=== PATIENT | female | born 1950 | race Caucasian/White ===

== ENCOUNTER 2016-03-24 08:00 | Outpatient (CLI) | payer MEDICARE, OTHER | END 2016-03-24 23:59 | DX: J44.1 Chronic obstructive pulmonary disease with (acute) exacerbation (principal); R05 Cough; J98.09 Other diseases of bronchus, not elsewhere classified ==

== ENCOUNTER 2016-05-30 07:56 | Outpatient (CLI) | payer MEDICARE, OTHER | END 2016-05-30 07:57 | disposition home or self-care (01) | DX: E78.2 Mixed hyperlipidemia (principal); Z79.899 Other long term (current) drug therapy; M19.90 Unspecified osteoarthritis, unspecified site; E55.9 Vitamin D deficiency, unspecified; G35 Multiple sclerosis ==

== ENCOUNTER 2016-07-02 09:25 | Outpatient (CLI) | payer MEDICARE, OTHER | END 2016-07-02 09:26 | disposition home or self-care (01) | DX: Z12.31 Encounter for screening mammogram for malignant neoplasm of breast (principal); Z80.3 Family history of malignant neoplasm of breast ==

== ENCOUNTER 2016-07-02 09:27 | Outpatient (CLI) | payer MEDICARE, OTHER | END 2016-07-02 09:28 | disposition home or self-care (01) | DX: Z13.820 Encounter for screening for osteoporosis (principal); Z78.0 Asymptomatic menopausal state ==

== ENCOUNTER 2016-08-09 13:34 | Outpatient (CLI) | payer MEDICARE, OTHER ==
[2016-08-09 13:50] LABS: BASOPHILS # (AUTO) 0.1 10^3/uL (0.0-0.1); BASOPHILS % (AUTO) 1.3 %; EOSINOPHILS # (AUTO) 0.2 10^3/uL (0.0-0.7); HCT - HEMATOCRIT 44.4 % (37.0-47.0); HGB - HEMOGLOBIN 15.4 g/dL (12.0-16.0); LYMPHOCYTES # (AUTO) 2.3 10^3/uL (1.5-3.5); LYMPHOCYTES % (AUTO) 29.1 %; MEAN CORPUSCULAR HEMOGLOBIN 30.5 pg (27.0-31.0); MEAN CORPUSCULAR HGB CONC 34.8 g/dL (32.0-36.0); MEAN CORPUSCULAR VOLUME 87.8 fL (81.0-99.0); MEAN PLATELET VOLUME 8.4 fL (7.9-10.8); MONOCYTES # (AUTO) 0.7 10^3/uL (0.0-1.0); MONOCYTES % (AUTO) 8.6 %; NEUTROPHILS # (AUTO) 4.6 10^3/uL (1.5-6.6); RED BLOOD COUNT 5.06 10^6/uL (4.20-5.40); RED CELL DISTRIBUTION WIDTH 14.3 % (12.0-15.0); UNCORRECTED WHITE BLOOD COUNT 7.9 x10^3/uL; WHITE BLOOD COUNT 7.9 x10^3/uL (4.8-10.8)
== END 2016-08-09 13:35 | disposition home or self-care (01) ==
LOC: LAB 13:34
PROVIDERS: ATTEND Physician Assistant Medical
DX: R74.8 Abnormal levels of other serum enzymes (principal)
CPT/HCPCS: 36415; 85025

== ENCOUNTER 2017-04-17 15:01 | Outpatient (CLI) | payer MEDICARE, OTHER ==
--- NOTE | 2017-04-18 12:47 | XRAY Report ---
THREE VIEW RIGHT KNEE: 04/17/2017 CLINICAL INDICATION: Pain. FINDINGS: AP, lateral, sunrise views of the right knee demonstrate a total knee replacement in place. There is no evidence of fracture or dislocation. No hardware complication is seen. IMPRESSION: RIGHT KNEE REPLACEMENT. NO EVIDENCE OF FRACTURE OR HARDWARE COMPLICATION. TD: 04/18/2017 12:46
--- NOTE | 2017-04-18 12:49 | XRAY Report ---
TWO VIEW CHEST: 04/17/2017 CLINICAL INDICATION: Emphysema, dyspnea. COMPARISON: 02/06/2016. FINDINGS: Frontal and lateral views of the chest demonstrate a normal cardiac silhouette. The lungs remain hyperinflated. Right pleural thickening is stable. No focal infiltrate, effusion, or pneumothorax is present. IMPRESSION: STABLE HYPERINFLATION. NO EVIDENCE OF ACUTE CARDIOPULMONARY DISEASE. TD: 04/18/2017 12:48
--- NOTE | 2017-04-18 17:55 | CT Report ---
CT SINUSES WITHOUT CONTRAST: 04/17/2017 CLINICAL INDICATION: Chronic sinusitis. TECHNIQUE: Axial CT images of the paranasal sinuses were obtained without intravenous contrast. Sagittal and coronal reconstructions were performed. In accordance with CT protocol optimization, one or more of the following dose reduction techniques were utilized for this exam: Automated exposure control, adjustment of mA and/or KV based on patient size, or use of iterative reconstructive technique. FINDINGS: There is patchy mucosal thickening in the ethmoid air cells, left greater than right. No air fluid levels are appreciated. The ostiomeatal units are patent. The nasal septum is midline. The visualized orbital contents are unremarkable. No osseous destruction is seen. IMPRESSION: MILD CHRONIC ETHMOID SINUS DISEASE. TD: 04/18/2017 17:54
== END 2017-04-17 15:02 | disposition home or self-care (01) ==
LOC: DI 15:01
PROVIDERS: ATTEND Physician Assistant Medical
DX: J32.2 Chronic ethmoidal sinusitis (principal); M25.561 Pain in right knee; Z96.651 Presence of right artificial knee joint; J43.9 Emphysema, unspecified
CPT/HCPCS: 70486; 71046

== ENCOUNTER 2017-05-29 10:17 | Outpatient (CLI) | payer MEDICARE, OTHER ==
[2017-05-29 10:56] LABS: BASOPHILS # (AUTO) 0.1 10^3/uL (0.0-0.1); BASOPHILS % (AUTO) 1.3 %; EOSINOPHILS # (AUTO) 0.2 10^3/uL (0.0-0.7); EOSINOPHILS % (AUTO) 2.4 %; HGB - HEMOGLOBIN 16.1 g/dL (12.0-16.0); LYMPHOCYTES # (AUTO) 2.4 10^3/uL (1.5-3.5); LYMPHOCYTES % (AUTO) 38.5 %; MEAN CORPUSCULAR HEMOGLOBIN 30.3 pg (27.0-31.0); MEAN CORPUSCULAR HGB CONC 34.3 g/dL (32.0-36.0); MEAN CORPUSCULAR VOLUME 88.2 fL (81.0-99.0); MEAN PLATELET VOLUME 8.3 fL (7.9-10.8); MONOCYTES # (AUTO) 0.6 10^3/uL (0.0-1.0); MONOCYTES % (AUTO) 8.8 %; NEUTROPHILS # (AUTO) 3.1 10^3/uL (1.5-6.6); PLT - PLATELET COUNT 219 10^3/uL (130-450); RED BLOOD COUNT 5.33 10^6/uL (4.20-5.40); RED CELL DISTRIBUTION WIDTH 14.4 % (12.0-15.0); WHITE BLOOD COUNT 6.3 x10^3/uL (4.8-10.8)
[2017-05-29 11:26] LABS: ALBUMIN 4.5 g/dL (3.2-5.5); ALBUMIN/GLOBULIN RATIO 1.5 (1.0-2.2); ALKALINE PHOSPHATASE 53 IU/L (42-121); ALT ALANINE AMINOTRANSFERASE 21 IU/L (10-60); AST ASPARTATE AMINOTRANSFERASE 20 IU/L (10-42); BILIRUBIN,TOTAL 0.9 mg/dL (0.2-1.0); BUN - BLOOD UREA NITROGEN 21 mg/dL (6-20); CALCIUM 8.9 mg/dL (8.5-10.3); CARBON DIOXIDE - CO2 23 mmol/L (21-32); CHLORIDE 103 mmol/L (101-111); CHOL/HDL RATIO 4.7 (<4.4); CHOLESTEROL 236 mg/dL; CREATININE 0.8 mg/dL (0.4-1.0); GFR - MDRD 72 (>89); GLUCOSE 96 mg/dL (70-100); HDL CHOLESTEROL 50 mg/dL; LDL CHOLESTEROL,CALCULATED 155 mg/dL; LDL/HDL RATIO 3.1 (<4.4); SODIUM 134 mmol/L (135-145); TOTAL PROTEIN 7.6 g/dL (6.7-8.2); VLDL CHOLESTEROL 31 mg/dL
== END 2017-05-29 10:18 | disposition home or self-care (01) ==
LOC: LAB 10:17
PROVIDERS: ATTEND Physician Assistant Medical
DX: Z79.899 Other long term (current) drug therapy (principal); E55.9 Vitamin D deficiency, unspecified; J43.9 Emphysema, unspecified; E78.2 Mixed hyperlipidemia; F32.9 Major depressive disorder, single episode, unspecified; M15.9 Polyosteoarthritis, unspecified
CPT/HCPCS: 36415; 80053; 80061; 82306; 83721; 84443; 85025

== ENCOUNTER 2017-07-08 15:29 | Outpatient (CLI) | payer MEDICARE, OTHER ==
--- NOTE | 2017-07-09 13:29 | Mammography Report ---
DIGITAL SCREENING MAMMOGRAM: 07/08/2017 CLINICAL INDICATION: A 67-year-old with family history of breast cancer for screening. COMPARISON: 06/2016, 05/2015, 05/2014, 05/2013. TECHNIQUE: Routine CC and MLO projections were obtained of the breasts. FINDINGS: Scattered fibroglandular tissue is present within the breasts. There are no dominant masses, suspicious microcalcifications, or secondary signs of malignancy. In comparison to the previous studies, there are no significant changes. IMPRESSION: NO MAMMOGRAPHIC EVIDENCE OF MALIGNANCY. NO SIGNIFICANT INTERVAL CHANGES. RECOMMENDATION: Screening mammography is recommended annually. BIRADS CATEGORY 1 - NEGATIVE. STANDARD QUALIFYING STATEMENTS: 1. This examination was reviewed with the aid of Computed-Aided Detection (CAD). 2. A negative or benign imaging report should not delay biopsy if clinically suspicious findings are present. Consider surgical consultation if warranted. More than 5% of cancers are not identified by imaging. 3. Dense breasts may obscure an underlying neoplasm. TD: 07/09/2017 13:19
== END 2017-07-08 15:30 | disposition home or self-care (01) ==
LOC: DI 15:29
PROVIDERS: ATTEND Physician Assistant Medical
DX: Z12.31 Encounter for screening mammogram for malignant neoplasm of breast (principal); Z80.3 Family history of malignant neoplasm of breast
CPT/HCPCS: 77067

== ENCOUNTER 2017-08-16 09:26 | Outpatient (CLI) | payer MEDICARE, OTHER ==
--- NOTE | 2017-08-16 09:47 | XRAY Report ---
Procedure Date: 08/16/2017 Accession Number: [id number] / [id number] Procedure: XR - Chest 2 View X-Ray CPT Code: 69916 FULL RESULT: EXAM: Chest 2 View X-Ray DATE: 08/16/2017 9:38 AM CLINICAL HISTORY: ATYPICAL CHEST PAIN COMPARISON: 04/17/2017, 02/06/2016, chest CT 04/29/2015 TECHNIQUE: 2 views. FINDINGS: Lungs/Pleura: Stable hyperinflation. No focal infiltrate, effusion, or pneumothorax. Mediastinum: Heart and mediastinal contours are unremarkable. Other: Stable elevation of the right hemidiaphragm, with right pleural scarring. IMPRESSION: Stable COPD. No evidence of acute cardiopulmonary disease. RADIA
[2017-08-16 10:11] LABS: TROPONIN I < 0.04 ng/mL (<0.49)
[2017-08-16 10:14] LABS: CREATINE KINASE MB 1.1 ng/mL (0.6-6.3)
== END 2017-08-16 09:27 | disposition home or self-care (01) ==
LOC: LAB 09:26
PROVIDERS: ATTEND Physician Assistant Medical
DX: R07.89 Other chest pain (principal); J44.9 Chronic obstructive pulmonary disease, unspecified
CPT/HCPCS: 36415; 71046; 82553; 84484

== ENCOUNTER 2017-08-29 09:47 | Outpatient (CLI) | payer MEDICARE, OTHER ==
[2017-08-29] MEDS ORDERED: REGADENOSON 0.4 MG/5 ML SYRINGE IVP ONE ×2 (11:15→14:27)
--- NOTE | 2017-08-29 15:26 | Nuclear Medicine Report ---
Procedure Date: 08/29/2017 Accession Number: [id number] / [id number] Procedure: NM - Myocardial Perfusion STR/RST CPT Code: FULL RESULT: EXAM: MYOCARDIAL PERFUSION STRESS AND REST EXAM. EXAM DATE: 08/29/2017 02:30 PM. CLINICAL HISTORY: Chest pain. COMPARISON: Chest 2 view 08/16/2017. TECHNIQUE: Patient given 9 mCi technetium 99m sestamibi IV for the rest portion of the study. Non-gated cardiac SPECT scintigraphy performed with multiplanar reformats. After an appropriate delay, patient given 0.4 mg Lexiscan for pharmacologic stress. After this, patient given 41.2 mCi technetium 99m sestamibi IV. Cardiac gated SPECT scintigraphy performed with multiplanar reformats, wall motion analysis, and left ventricular ejection fraction estimation. FINDINGS: There is a moderate-sized focus of moderate decreased activity in the inferior wall from apex to base, with more moderate decreased activity near the apex. This is fixed on stress and rest. Small focus mild decreased activity mid septum on stress which normalizes on rest. Mild hypokinesis in the mid to apical inferoseptal. Left ventricular ejection fraction estimated at 68%. IMPRESSION: 1. Moderate-sized inferior wall infarct. 2. Probable mild mid septal ischemia. 3. Left ventricular ejection fraction estimated at 68%. RADIA
--- NOTE | 2017-08-29 16:45 | CARDIAC PROCEDURE NOTE ---
DATE OF SERVICE: 08/29/2017 Physician: NAMITA Alves PCP: Dari Freitas PA-C PROCEDURE: Pharmacologic cardiac stress test. PROCEDURE SYMPTOMS: Atypical chest pain and abnormal EKG. CARDIAC RISK FACTORS: Age, smoker, hyperlipidemia. PREVIOUS CARDIAC PROCEDURES: None. CLINICAL HISTORY: A 67-year-old female without known coronary artery disease. She has COPD. INITIAL RESTING VITAL SIGNS: BP 106/78, heart rate 82, height 65 inches, weight 220 pounds, BMI 36.79. PROCEDURE AND FINDINGS Patient identity and date verified. Consent signed. Pharmaceutical check. Pharmacologic stress testing was performed with Lexiscan at a dose of 0.4 mg over 10 seconds. The heart rate increased to 92 beats per minute from the infusion. Blood pressure response was normal during the stress procedure. The patient developed moderate infusion- related symptoms, which included chest tightness, headache, and nausea. These symptoms were slow to resolve, and the patient was given coffee. The resting electrocardiogram demonstrated normal sinus rhythm with nonspecific ST changes in the inferior leads. Maximum ST-segment depression with stress was 1.0 and flat. There were T-wave flattening in leads V3 through 6. There was no ectopy. FINAL IMPRESSION 1. Nondiagnostic electrocardiogram for ischemia in the setting of vasodilator stress. 2. Nondiagnostic stress test for angina. 3. No ectopy. 4. Await myocardial perfusion report. TD: 08/29/2017 14:10 MTDD
[2017-08-29 18:22] VITALS: BP 108/64
== END 2017-08-29 09:48 | disposition home or self-care (01) ==
LOC: DI 09:47
PROVIDERS: ATTEND Physician Assistant Medical
DX: R07.89 Other chest pain (principal); R94.39 Abnormal result of other cardiovascular function study; E78.5 Hyperlipidemia, unspecified; F17.200 Nicotine dependence, unspecified, uncomplicated
CPT/HCPCS: 78452; 93017; A9500; J2785

== ENCOUNTER 2017-12-31 12:07 | Outpatient (CLI) | payer MEDICARE, OTHER ==
[2017-12-31 12:19] LABS: BILIRUBIN,URINE NEGATIVE (NEGATIVE); GLUCOSE, URINE (UA) NEGATIVE (NEGATIVE); KETONES,URINE (UA) NEGATIVE (NEGATIVE); LEUKOCYTE ESTERASE, URINE NEGATIVE (NEGATIVE); NITRITE,URINE NEGATIVE (NEGATIVE); OCCULT BLOOD,URINE NEGATIVE (NEGATIVE); PROTEIN,URINE NEGATIVE (NEGATIVE); UROBILINOGEN,URINE 2 E.U./dL (NORMAL)
[2017-12-31 12:21] LABS: CLARITY,URINE CLEAR (CLEAR)
[2017-12-31 12:41] LABS: BASOPHILS # (AUTO) 0.1 10^3/uL (0.0-0.1); BASOPHILS % (AUTO) 1.1 %; EOSINOPHILS # (AUTO) 0.1 10^3/uL (0.0-0.7); EOSINOPHILS % (AUTO) 1.1 %; HGB - HEMOGLOBIN 13.6 g/dL (12.0-16.0); LYMPHOCYTES # (AUTO) 1.4 10^3/uL (1.5-3.5); LYMPHOCYTES % (AUTO) 12.6 %; MEAN CORPUSCULAR HEMOGLOBIN 29.6 pg (27.0-31.0); MEAN CORPUSCULAR HGB CONC 33.8 g/dL (32.0-36.0); MEAN CORPUSCULAR VOLUME 87.7 fL (81.0-99.0); MEAN PLATELET VOLUME 7.6 fL (7.9-10.8); MONOCYTES # (AUTO) 1.1 10^3/uL (0.0-1.0); MONOCYTES % (AUTO) 9.5 %; NEUTROPHILS # (AUTO) 8.4 10^3/uL (1.5-6.6); NEUTROPHILS % (AUTO) 75.7 %; PLT - PLATELET COUNT 326 10^3/uL (130-450); RED BLOOD COUNT 4.57 10^6/uL (4.20-5.40); RED CELL DISTRIBUTION WIDTH 14.9 % (12.0-15.0); WHITE BLOOD COUNT 11.1 x10^3/uL (4.8-10.8)
[2017-12-31 12:43] LABS: ALBUMIN 3.8 g/dL (3.2-5.5); ALBUMIN/GLOBULIN RATIO 1.2 (1.0-2.2); BILIRUBIN,TOTAL 0.8 mg/dL (0.2-1.0); CALCIUM 8.6 mg/dL (8.5-10.3); CREATININE 0.7 mg/dL (0.4-1.0); TOTAL PROTEIN 7.1 g/dL (6.7-8.2)
--- NOTE | 2017-12-31 12:50 | XRAY Report ---
Reason: COUGH Procedure Date: 12/31/2017 Accession Number: [id number] / [id number] Procedure: XR - Chest 2 View X-Ray CPT Code: 01140 FULL RESULT: EXAM: CHEST RADIOGRAPHY EXAM DATE: 12/31/2017 12:34 PM. CLINICAL HISTORY: COUGH. COMPARISON: CHEST 2 VIEW 08/16/2017 9:38 AM. TECHNIQUE: 2 views. FINDINGS: Lungs/Pleura: No focal consolidation. Elevation of the right hemidiaphragm and blunting of the right costophrenic angle are similar to prior. No pneumothorax or large pleural effusion bilaterally. Mediastinum: Heart and mediastinal contours are unremarkable. Other: Interval left shoulder arthroplasty. IMPRESSION: No radiographically apparent acute abnormality in the chest. No significant change from prior. RADIA
== END 2017-12-31 12:08 | disposition home or self-care (01) ==
LOC: LAB 12:07 → DI 12:08
PROVIDERS: ATTEND Physician Assistant Medical
DX: R05 Cough (principal); R30.0 Dysuria; R11.0 Nausea
CPT/HCPCS: 36415; 71046; 80053; 81001; 81003; 85025; 87086

== ENCOUNTER 2018-06-26 10:46 | Outpatient (CLI) | payer MEDICARE, OTHER ==
--- NOTE | 2018-06-26 11:57 | CT Report ---
Reason: TOBACCO ABUSE Procedure Date: 06/26/2018 Accession Number: [id number] / [id number] Procedure: CT - Low Dose Lung Cancer Screen CPT Code: FULL RESULT: EXAM CT LUNG SCREEN EXAM DATE: 06/26/2018 11:17 AM. HISTORY: 68-year-old patient with over [id number]-ivsv smoking history. Currently smoking: No. Quit 04/23/2018. COMPARISON: CHEST SCREEN LOW DOSE W/O 04/29/2015 4:08 PM. TECHNIQUE: CT examination of the entire thorax without contrast was performed using low-dose technique. Thin section coronal, axial, sagittal and MIP axial images were obtained. In accordance with CT protocol optimization, one or more of the following dose reduction techniques were utilized for this exam: automated exposure control, adjustment of mA and/or KV based on patient size, or use of iterative reconstructive technique. FINDINGS: Nodules: Right upper lobe: None. Right middle lobe: None. Right lower lobe: None. Left upper lobe: 3 mm perifissural nodule on image 101, stable. Left lower lobe: 5 mm nodule on image 98, stable. Emphysema: Moderate upper lobe predominant. Pleura: Unremarkable. Aorta: Minimally calcified. Mediastinum: Unremarkable. Coronary calcifications: Mild. Other pulmonary findings: None. Other extrapulmonary findings: Status post cholecystectomy. IMPRESSION: LUNG-RADS ASSESSMENT CATEGORY: 2 - benign findings. Probability of malignancy: Less than 1%. RECOMMENDATION: Continue annual low-dose screening CT of the chest as per lung RADS guidelines. RADIA
== END 2018-06-26 10:47 | disposition home or self-care (01) ==
LOC: DI 10:46
PROVIDERS: ATTEND Nurse Practitioner
DX: Z12.2 Encounter for screening for malignant neoplasm of respiratory organs (principal); J43.9 Emphysema, unspecified; Z87.891 Personal history of nicotine dependence

== ENCOUNTER 2018-07-23 08:26 | Outpatient (CLI) | payer MEDICARE, OTHER ==
[2018-07-23 09:30] LABS: BASOPHILS # (AUTO) 0.1 10^3/uL (0.0-0.1); BASOPHILS % (AUTO) 1.8 %; EOSINOPHILS # (AUTO) 0.2 10^3/uL (0.0-0.7); EOSINOPHILS % (AUTO) 3.7 %; HGB - HEMOGLOBIN 14.2 g/dL (12.0-16.0); LYMPHOCYTES # (AUTO) 1.8 10^3/uL (1.5-3.5); LYMPHOCYTES % (AUTO) 36.9 %; MEAN CORPUSCULAR HGB CONC 33.8 g/dL (32.0-36.0); MEAN CORPUSCULAR VOLUME 85.9 fL (81.0-99.0); MEAN PLATELET VOLUME 7.7 fL (7.9-10.8); MONOCYTES # (AUTO) 0.5 10^3/uL (0.0-1.0); MONOCYTES % (AUTO) 10.1 %; NEUTROPHILS # (AUTO) 2.3 10^3/uL (1.5-6.6); NEUTROPHILS % (AUTO) 47.5 %; PLT - PLATELET COUNT 253 10^3/uL (130-450); RED CELL DISTRIBUTION WIDTH 16.3 % (12.0-15.0); WHITE BLOOD COUNT 4.8 x10^3/uL (4.8-10.8)
[2018-07-23 09:55] LABS: ALBUMIN 4.1 g/dL (3.2-5.5); ALBUMIN/GLOBULIN RATIO 1.2 (1.0-2.2); ALKALINE PHOSPHATASE 63 IU/L (42-121); ALT ALANINE AMINOTRANSFERASE 20 IU/L (10-60); AST ASPARTATE AMINOTRANSFERASE 21 IU/L (10-42); BILIRUBIN,TOTAL 0.9 mg/dL (0.2-1.0); BUN - BLOOD UREA NITROGEN 21 mg/dL (6-20); CARBON DIOXIDE - CO2 25 mmol/L (21-32); CHLORIDE 102 mmol/L (101-111); CHOL/HDL RATIO 3.8 (<4.4); CHOLESTEROL 188 mg/dL; CREATININE 0.9 mg/dL (0.4-1.0); GFR - MDRD 63 (>89); GLUCOSE 99 mg/dL (70-100); HDL CHOLESTEROL 50 mg/dL; LDL CHOLESTEROL,CALCULATED 108 mg/dL; LDL/HDL RATIO 2.2 (<4.4); SODIUM 136 mmol/L (135-145); TOTAL PROTEIN 7.5 g/dL (6.7-8.2); VLDL CHOLESTEROL 30 mg/dL
== END 2018-07-23 08:27 | disposition home or self-care (01) ==
LOC: LAB 08:26
PROVIDERS: ATTEND Nurse Practitioner
DX: Z79.899 Other long term (current) drug therapy (principal); E55.9 Vitamin D deficiency, unspecified; E78.2 Mixed hyperlipidemia
CPT/HCPCS: 36415; 80053; 80061; 82306; 83721; 84443; 85025

== ENCOUNTER 2018-08-11 14:51 | Outpatient (CLI) | payer MEDICARE, OTHER ==
--- NOTE | 2018-08-12 08:53 | Mammography Report ---
Reason: SCREENING FOR BREAST CANCER Procedure Date: 08/11/2018 Accession Number: [id number] / [id number] Procedure: HIREN - Screening Mammo w/Donnell CPT Code: FULL RESULT: EXAM: Screening Mammo w/Donnell DATE: 08/11/2018 3:16 PM CLINICAL HISTORY: Screening encounter. Family history of breast cancer in a sister at the age of 61. TECHNIQUE: (B) - Bilateral CC and MLO views were obtained. COMPARISON: 07/08/2017 through 05/26/2014. PARENCHYMAL PATTERN: (A) - The breast(s) demonstrate(s) scattered fibroglandular densities. FINDINGS: There are coarse typically benign calcifications. There are no suspicious masses, calcifications, or areas of distortion. IMPRESSION: Benign findings. BI-RADS category 2. RECOMMENDATION: (ANNUAL) - Recommend routine annual screening mammography. BI-RADS CATEGORY: (2) - Benign Findings. STANDARD QUALIFYING STATEMENTS: 1. This examination was not reviewed with the aid of Computer-Aided Detection (CAD). 2. A negative or benign imaging report should not preclude biopsy if clinically suspicious findings are present. 3. Dense breasts may obscure an underlying neoplasm. 4. This examination was reviewed with the aid of 3D breast imaging (tomosynthesis).
== END 2018-08-11 14:52 | disposition home or self-care (01) ==
LOC: DI 14:51
PROVIDERS: ATTEND Nurse Practitioner
DX: Z12.31 Encounter for screening mammogram for malignant neoplasm of breast (principal); Z80.3 Family history of malignant neoplasm of breast
CPT/HCPCS: 77063; 77067

== ENCOUNTER 2019-01-28 08:33 | Day surgery (SDC) | payer MEDICARE, OTHER ==
[2019-01-28] MEDS ORDERED: LACTATED RINGERS 1,000 ML IV ONE (08:40)
[2019-01-28] MEDS ORDERED: MIDAZOLAM 2 MG/2 ML VIAL IVP ONE (09:24)
[2019-01-28] MEDS ORDERED: fentaNYL 250 MCG/5 ML VIAL IVP ONE (09:24)
[2019-01-28 10:34] VITALS: BP 113/82
== END 2019-01-28 08:34 | disposition home or self-care (01) ==
LOC: SDS 08:33
PROVIDERS: ATTEND Surgery
PROC: 0DBP8ZZ Excision of Rectum, Via Natural or Artificial Opening Endoscopic (ICD-10-PCS; 2019-01-28)
PROC: 0DBH8ZZ Excision of Cecum, Via Natural or Artificial Opening Endoscopic (ICD-10-PCS; principal; 2019-01-28 10:00)
DX: Z12.11 Encounter for screening for malignant neoplasm of colon (principal); D12.0 Benign neoplasm of cecum; D12.8 Benign neoplasm of rectum; K57.30 Diverticulosis of large intestine without perforation or abscess without bleeding; K64.8 Other hemorrhoids; T88.52XA Failed moderate sedation during procedure, initial encounter; T41.1X5A Adverse effect of intravenous anesthetics, initial encounter; Y83.8 Other surgical procedures as the cause of abnormal reaction of the patient, or of later complication, without mention of misadventure at the time of the procedure; Y92.234 Operating room of hospital as the place of occurrence of the external cause; Z80.3 Family history of malignant neoplasm of breast; Z80.41 Family history of malignant neoplasm of ovary
CPT/HCPCS: 45380; J7120

== ENCOUNTER 2019-02-25 10:13 | Outpatient (CLI) | payer MEDICARE, OTHER | END 2019-02-25 23:59 | disposition home or self-care (01) | LOC: LAB.R 10:13 | PROVIDERS: ATTEND Family Medicine | DX: J32.9 Chronic sinusitis, unspecified (principal); R05 Cough; K29.00 Acute gastritis without bleeding; H66.90 Otitis media, unspecified, unspecified ear | CPT/HCPCS: 87275; 87276 ==

== ENCOUNTER 2019-07-14 09:11 | Outpatient (CLI) | payer MEDICARE, OTHER ==
[~2019-07-14 09:11] MED LIST: ALBUTEROL 1 PUFF INH SCH
== END 2019-07-14 09:12 | disposition home or self-care (01) ==
LOC: RT 09:11
PROVIDERS: ATTEND Nurse Practitioner
DX: J43.9 Emphysema, unspecified (principal)
CPT/HCPCS: 94060

== ENCOUNTER 2019-09-03 07:37 | Outpatient (CLI) | payer MEDICARE, OTHER ==
[2019-09-03 08:05] LABS: BASOPHILS # (AUTO) 0.1 10^3/uL (0.0-0.1); BASOPHILS % (AUTO) 1.3 %; EOSINOPHILS # (AUTO) 0.2 10^3/uL (0.0-0.7); EOSINOPHILS % (AUTO) 4.1 %; HGB - HEMOGLOBIN 15.2 g/dL (12.0-16.0); LYMPHOCYTES # (AUTO) 2.1 10^3/uL (1.5-3.5); LYMPHOCYTES % (AUTO) 37.1 %; MEAN CORPUSCULAR HEMOGLOBIN 30.1 pg (27.0-31.0); MEAN CORPUSCULAR HGB CONC 33.3 g/dL (32.0-36.0); MEAN CORPUSCULAR VOLUME 90.5 fL (81.0-99.0); MEAN PLATELET VOLUME 10.1 fL (7.9-10.8); MONOCYTES # (AUTO) 0.6 10^3/uL (0.0-1.0); NEUTROPHILS # (AUTO) 2.6 10^3/uL (1.5-6.6); NEUTROPHILS % (AUTO) 47.1 %; PLT - PLATELET COUNT 215 10^3/uL (130-450); RED BLOOD COUNT 5.05 10^6/uL (4.20-5.40); RED CELL DISTRIBUTION WIDTH 14.1 % (12.0-15.0); WHITE BLOOD COUNT 5.6 x10^3/uL (4.8-10.8)
[2019-09-03 08:21] LABS: ALBUMIN/GLOBULIN RATIO 1.3 (1.0-2.2); ALKALINE PHOSPHATASE 47 IU/L (42-121); ALT ALANINE AMINOTRANSFERASE 28 IU/L (10-60); AST ASPARTATE AMINOTRANSFERASE 24 IU/L (10-42); BILIRUBIN,TOTAL 0.9 mg/dL (0.2-1.0); BUN - BLOOD UREA NITROGEN 20 mg/dL (6-20); CALCIUM 8.3 mg/dL (8.5-10.3); CARBON DIOXIDE - CO2 21 mmol/L (21-32); CHLORIDE 105 mmol/L (101-111); CHOL/HDL RATIO 4.9 (<4.4); CHOLESTEROL 214 mg/dL; CREATININE 0.9 mg/dL (0.4-1.0); GLUCOSE 124 mg/dL (70-100); HDL CHOLESTEROL 44 mg/dL; LDL CHOLESTEROL,CALCULATED 122 mg/dL; LDL/HDL RATIO 2.8 (<4.4); SODIUM 136 mmol/L (135-145); TOTAL PROTEIN 7.2 g/dL (6.7-8.2); VLDL CHOLESTEROL 48 mg/dL
== END 2019-09-03 07:38 | disposition home or self-care (01) ==
LOC: LAB 07:37
PROVIDERS: ATTEND Nurse Practitioner
DX: K21.9 Gastro-esophageal reflux disease without esophagitis (principal); Z79.899 Other long term (current) drug therapy; J43.9 Emphysema, unspecified; M85.80 Other specified disorders of bone density and structure, unspecified site; E55.9 Vitamin D deficiency, unspecified; E78.2 Mixed hyperlipidemia; F32.9 Major depressive disorder, single episode, unspecified
CPT/HCPCS: 36415; 80053; 80061; 82306; 83721; 84443; 85025

== ENCOUNTER 2019-09-17 06:50 | Day surgery (SDC) | payer MEDICARE, OTHER ==
[2019-09-17] MEDS ORDERED: PROPOFOL 200 MG/20 ML VIAL IVP ONE (06:51)
[2019-09-17] MEDS ORDERED: GLYCOPYRROLATE 1 MG/5 ML VIAL IVP ONE (06:51)
[2019-09-17] MEDS ORDERED: KETAMINE 500 MG/10 ML VIAL IVP ONE (06:51)
[2019-09-17] MEDS ORDERED: MIDAZOLAM 2 MG/2 ML VIAL IVP ONE (06:51)
[2019-09-17] MEDS ORDERED: LACTATED RINGERS 1,000 ML IV ONE (07:18)
--- NOTE | 2019-09-17 10:05 | ANESTHESIA ---
Pre-Anesthesia VS, & Labs - Diagnosis hx polyps - Procedure colonoscopy Vital Signs: Temp Pulse Resp BP Pulse Ox 36.0 C L 86 20 86/60 L 94 09/17/19 09:31 09/17/19 09:40 09/17/19 09:40 09/17/19 09:40 09/17/19 09:40 Height 5 ft 4 in Weight (kg) 110.5 kg Body Mass Index 29.2 - NPO >8 hours - Is Patient ?: No Home Medications and Allergies Calcium Carbonate [Tums] 300 mg PO DAILY 03/05/13 Cetirizine [ZyrTEC] 10 mg PO ONCE 03/05/13 Fluticasone [Flonase] 1 sprays SUNNY DAILY 03/05/13 Meloxicam 15 mg PO DAILY 03/05/13 Vit D3-Vit K/Berberine/Hops [Ostera Tablet] 1 each PO DAILY 03/05/13 Albuterol Sulf [Ventolin Hfa Inhaler] 1 - 2 puffs INH Q4HR PRN 01/28/19 Montelukast [Singulair] 10 mg PO QPM 01/28/19 Omeprazole 20 mg PO DAILY 01/28/19 guaiFENesin [Guaifenesin] 400 mg PO DAILY 01/28/19 Allergies/Adverse Reactions: Allergies Allergy/AdvReac Type Severity Reaction Status Date / Time Sulfa (Sulfonamide Allergy Unknown Unknown Verified 01/28/19 08:59 Antibiotics) Anes History & Medical History - Anesthetic History Anesthesia Complications: reports: No previous complications Family history of Anesthesia Complications: Denies Family history of Malignant Hyperthermia: Denies - Medical History Cardiovascular: reports: None Pulmonary: reports: COPD Gastrointestinal: reports: GERD Urinary: reports: None Musculoskeletal: reports: None Endocrine/Autoimmune: reports: None Skin: reports: None Smoking Status: Current every day smoker - Surgical History General: Cholecystectomy Gynecologic: section Orthopedic: Knee replacement, Other Exam General: Alert, Oriented x3, Cooperative Dental: WNL Mouth Openin Fingerbreadth Neck Mobility: Normal Mallampati classification: II Thyromental Distance: 4-6 cm Respiratory: Lungs clear, Normal breath sounds Cardiovascular: Regular rate Neurological: Normal speech Mental/Cognitive Status: Alert/Oriented X3, Normal for patient Cognitive Status: Within normal limits Plan Anesthesia Type: MAC Consent for Procedure(s) Verified and Reviewed: Yes Code Status: Attempt Resuscitation ASA classification: 2-Mild systemic disease Is this case an emergency?: No
[2019-09-17 10:10] VITALS: BP 115/71
== END 2019-09-17 06:51 | disposition home or self-care (01) ==
LOC: SDS 06:50
PROVIDERS: ATTEND Surgery
PROC: 0DBN8ZX Excision of Sigmoid Colon, Via Natural or Artificial Opening Endoscopic, Diagnostic (ICD-10-PCS; 2019-09-17)
PROC: 0DBP8ZX Excision of Rectum, Via Natural or Artificial Opening Endoscopic, Diagnostic (ICD-10-PCS; principal; 2019-09-17 08:15)
DX: Z86.010 Personal history of colon polyps (principal); K63.5 Polyp of colon; K57.30 Diverticulosis of large intestine without perforation or abscess without bleeding; Q43.8 Other specified congenital malformations of intestine; G47.33 Obstructive sleep apnea (adult) (pediatric)
CPT/HCPCS: 45380; J7120

== ENCOUNTER 2019-09-22 09:35 | Outpatient (CLI) | payer MEDICARE, OTHER ==
--- NOTE | 2019-09-22 13:26 | CT Report ---
PROCEDURE: Low Dose Lung Cancer Screen INDICATIONS: PERSONAL HISTORY OF SMOKING TECHNIQUE: Noncontrast low-dose 5 mm thick sections acquired from the pulmonary apices to the posterior costophr enic angles. 7 mm thick coronal and sagittal MIP reformats were then acquired. For radiation dose r eduction, the following was used: automated exposure control, adjustment of mA and/or kV according t o patient size. COMPARISON: None. FINDINGS: Image quality: Excellent. Lungs and pleura: Within the right upper lobe laterally there is a 4 mm nodule that was previously p resent on CT scanning 06/26/2018, stable over time. Note is made of centrilobular emphysema that is mod erate in severity, best seen over the upper lungs. No interval change has developed that would indica te presence of early manifestation of underlying lung carcinoma. Mediastinum: Heart size is normal. No pericardial effusion. No mediastinal adenopathy by size crit eria. Thoracic aorta and central pulmonary arteries are normal in size. Esophagus is normal in braxton joey. No hiatal hernia. Bones and chest wall: No suspicious bony lesions. No vertebral body compression fractures. No axil farzad or supraclavicular adenopathy by size criteria. The thyroid is normal in size. Abdomen: Visualized upper abdomen solid organs and bowel loops appear normal in the absence of contr ast. IMPRESSION: Centrilobular emphysema consistent with long-standing smoking history. 4 mm lateral right upper lobe lung nodule stable over time from 06/26/2018 CT scanning. Lung RADS category 1, follow-up CT scanning utilizing low-dose noncontrast technique is recommended i n one year. Reviewed by: Kiko Casillas MD on 09/22/2019 1:25 PM PDT Approved by: Kiok Casillas MD on 09/22/2019 1:25 PM PDT Station ID: [id number]
== END 2019-09-22 09:36 | disposition home or self-care (01) ==
LOC: DI 09:35
PROVIDERS: ATTEND Nurse Practitioner
DX: Z12.2 Encounter for screening for malignant neoplasm of respiratory organs (principal); J43.2 Centrilobular emphysema; R91.1 Solitary pulmonary nodule; Z87.891 Personal history of nicotine dependence
CPT/HCPCS: G0297 ×2

== ENCOUNTER 2019-10-27 09:26 | Outpatient (CLI) | payer MEDICARE, OTHER ==
--- NOTE | 2019-10-28 09:49 | Mammography Report ---
BILATERAL DIGITAL SCREENING MAMMOGRAM 3D/2D: 10/27/2019 CLINICAL: Routine screening. Comparison is made to exams dated: 08/11/2018 mammogram, 06/29/2017 mammogram, 07/02/2016 mammogram, an d 05/30/2015 mammogram - [facility]. There are scattered fibroglandular elements in both breasts. No significant masses, calcifications, or other findings are seen in either breast. There has been no significant interval change. IMPRESSION: NEGATIVE There is no mammographic evidence of malignancy. A 1 year screening mammogram is recommended. This exam was interpreted at Station ID: [id number]. NOTE: For mammograms, a report in lay terms will be sent to the patient. Approximately 15% of breast malignancies will not be visualized mammographically. In the management of a palpable breast mass, a negative mammogram must not discourage biopsy of a clinically suspicious lesion. Electronically Signed By: Timothy barber/yunrad:10/27/2019 11:01:33 ACR BI-RADS Category 1: Negative 3341F PARENCHYMAL PATTERN: (A) - The breast(s) demonstrate(s) scattered fibroglandular densities. BI-RADS CATEGORY: (1) - 1 RECOMMENDATION: (ANNUAL) - Recommend routine annual screening mammography. [id number] 1 year screening LATERALITY: (B)
== END 2019-10-27 09:27 | disposition home or self-care (01) ==
LOC: DI 09:26
PROVIDERS: ATTEND Nurse Practitioner
DX: Z12.31 Encounter for screening mammogram for malignant neoplasm of breast (principal)
CPT/HCPCS: 77063; 77067

== ENCOUNTER 2019-11-02 12:45 | Outpatient (CLI) | payer MEDICARE, OTHER ==
--- NOTE | 2019-11-02 15:55 | DEXA Report ---
PROCEDURE: Dexa Spine and/or Hip INDICATIONS: POST MENOPAUSAL TECHNIQUE: Dual energy x-ray absorptiometry (DXA) was performed on a [employer] System. Regions measur ed are the AP Spine, femoral neck, and if needed forearm. COMPARISON: 07/02/2016. FINDINGS: Lumbar Spine: Bone Mineral Density 1.141 g/cm/cm,T score -0.3, normal. No significant change. Left Hip: Bone Mineral Density 0.996 g/cm/cm,T score -0.1, this represents a 5.5% statistically significant im provement in bone mineral density from 2017. Left Femoral Neck: Bone Mineral Density 0.891 g/cm/cm, T score -1.1, osteopenia (T score greater or equal to -1.0: NORMAL) (T score from -1.1 to -2.4: OSTEOPENIA) (T score less than or equal to -2.5 to: OSTEOPOROSIS) Impression: Osteopenia involving the femoral neck region on the left but there is normal bone mineral density of the left hip overall and the lumbosacral pine. There has been a statistically significant improvement in overall left hip bone density from 2017. Patients with diagnosis of osteoporosis or osteopenia should have regular bone mineral density assess ment. For those eligible for Medicare, routine testing is allowed once every 2 years. Testing frequ ency can be increased for patients who have rapidly progressing disease or for those who are receivin g medical therapy to restore bone mass. Reviewed by: Kiko aCsillas MD on 11/02/2019 3:54 PM PDT Approved by: Kiko Casillas MD on 11/02/2019 3:54 PM PDT Station ID: [id number]
== END 2019-11-02 12:46 | disposition home or self-care (01) ==
LOC: DI 12:45
PROVIDERS: ATTEND Nurse Practitioner
DX: M85.88 Other specified disorders of bone density and structure, other site (principal)
CPT/HCPCS: 77080

== ENCOUNTER 2020-06-25 | Outpatient (CLI) | payer MEDICARE, OTHER | END 2020-06-25 13:24 | disposition home or self-care (01) | DX: J44.9 Chronic obstructive pulmonary disease, unspecified (principal) | CPT/HCPCS: 94060; 94729 ==

== ENCOUNTER 2020-08-31 08:09 | Emergency (ER) | payer MEDICARE, OTHER ==
[2020-08-31 08:39] VITALS: BP 149/92
--- NOTE | 2020-08-31 08:48 | ED Physician Documentation ---
PD HPI HEENT - Stated complaint Stated Complaint: LT EAR PX - Chief complaint Chief Complaint: Heent - History obtained from History obtained from: Patient - History of Present Illness Timing - onset: How many weeks ago (1) Timing - duration: Weeks (1) Timing - details: Gradual onset, Still present Location: Left ear. No: Right ear, Nose, Throat Worsens: Swalllowing, Position Associated symptoms: No: Fever, Congestion, Rhinorrhea, Facial swelling Similar symptoms before: Has not had sx before Recently seen: Clinic (seen in Clinic and Rx with cortisporin ear drops to treat area of redness in ear canal, per patient. Not improved with it after 3 days.) Review of Systems Constitutional: denies: Fever, Chills Ears: reports: Ear pain, Drainage/discharge (mild). denies: Tinnitus/ringing Nose: denies: Rhinorrhea / runny nose, Congestion Throat: denies: Sore throat Respiratory: denies: Cough GI: denies: Nausea, Vomiting Skin: denies: Rash, Lesions PD PAST MEDICAL HISTORY - Past Medical History Past Medical History: Yes Cardiovascular: None Respiratory: COPD Endocrine/Autoimmune: None GI: GERD : None HEENT: None Psych: Anxiety Musculoskeletal: None Derm: None - Past Surgical History General: Cholecystectomy Ortho: Knee replacement, Other /TIN CAN FEEDER: section - Present Medications Home Medications: Ambulatory Orders Medication Instructions Recorded Confirmed Calcium Carbonate [Tums] 300 mg PO DAILY 03/05/13 01/28/19 Cetirizine [ZyrTEC] 10 mg PO ONCE 03/05/13 01/28/19 Fluticasone [Flonase] 1 sprays SUNNY DAILY 03/05/13 01/28/19 Meloxicam 15 mg PO DAILY 03/05/13 01/28/19 Vit D3-Vit K/Berberine/Hops 1 each PO DAILY 03/05/13 01/28/19 [Ostera Tablet] Albuterol Sulf [Ventolin Hfa 1 - 2 puffs INH Q4HR PRN 01/28/19 01/28/19 Inhaler] Montelukast [Singulair] 10 mg PO QPM 01/28/19 01/28/19 Omeprazole 20 mg PO DAILY 01/28/19 01/28/19 guaiFENesin [Guaifenesin] 400 mg PO DAILY 01/28/19 01/28/19 Ciproflox/Dexameth Otic Drops 4 drops LEFTEAR TID #7.5 ml 08/31/20 [Ciprodex Otic Drops] dexAMETHasone [Decadron] 4 mg PO DAILY #5 tablet 08/31/20 - Allergies Allergies/Adverse Reactions: Allergies Allergy/AdvReac Type Severity Reaction Status Date / Time Sulfa (Sulfonamide Allergy Unknown Unknown Verified 08/31/20 08:39 Antibiotics) - Social History Does the pt smoke?: Yes Smoking Status: Current every day smoker Does the pt drink ETOH?: Yes Does the pt have substance abuse?: No - POLST Patient has POLST: No PD ED PE NORMAL - Vitals Vital signs reviewed: Yes - General General: Alert and oriented X 3, Well developed/nourished - HEENT HEENT: Moist mucous membranes, Pharynx benign. No: Ears normal (right is good. Left ear canal with some redness and mild swelling outer canal at 6 oclock position. ) - Neck Neck: Supple, no meningeal sign, No adenopathy - Cardiac Cardiac: RRR, No murmur - Respiratory Respiratory: Clear bilaterally - Derm Derm: Normal color, Warm and dry, No rash (and not tender external skin on face. ) - Neuro Neuro: Alert and oriented X 3, No motor deficit, No sensory deficit, Normal speech Results - Vitals Vitals: Oxygen O2 Source Room air PD MEDICAL DECISION MAKING - ED course Complexity details: considered differential (pain of ear and being treated for OE. No rash nor external skin tenderness/lesions. ), d/w patient Departure - Departure Disposition: 01 Home, Self Care Clinical Impression: Acute pain of left ear Condition: Stable Follow-Up: Velma Mansfield PA [Primary Care Provider] - Prescriptions: Ciproflox/Dexameth Otic Drops [Ciprodex Otic Drops] 4 drops LEFTEAR TID #7.5 ml dexAMETHasone [Decadron] 4 mg PO DAILY #5 tablet Comments: We can try different eardrops and also a different anti-inflammatory. Follow-up with your primary care or ENT in the next few days if not improving well. Discharge Date/Time: 08/31/20 09:46
== END 2020-08-31 09:46 | disposition home or self-care (01) ==
LOC: ED 08:09
DX: H60.92 Unspecified otitis externa, left ear (principal); F17.200 Nicotine dependence, unspecified, uncomplicated
CPT/HCPCS: 99282; 99284

== ENCOUNTER 2020-09-13 10:59 | Outpatient (CLI) | payer MEDICARE, OTHER ==
[2020-09-13 11:49] LABS: ALBUMIN 4.3 g/dL (3.2-5.5); ALBUMIN/GLOBULIN RATIO 1.2 (1.0-2.2); ALKALINE PHOSPHATASE 109 IU/L (42-121); ALT ALANINE AMINOTRANSFERASE 127 IU/L (10-60); AST ASPARTATE AMINOTRANSFERASE 31 IU/L (10-42); BILIRUBIN,TOTAL 0.9 mg/dL (0.2-1.0); BUN - BLOOD UREA NITROGEN 19 mg/dL (6-20); CALCIUM 9.4 mg/dL (8.5-10.3); CARBON DIOXIDE - CO2 21 mmol/L (21-32); CHLORIDE 105 mmol/L (101-111); CHOL/HDL RATIO 3.5 (<4.4); CHOLESTEROL 240 mg/dL; CREATININE 0.8 mg/dL (0.4-1.0); GFR - MDRD 71 (>89); GLUCOSE 113 mg/dL (70-100); HDL CHOLESTEROL 69 mg/dL; LDL CHOLESTEROL,CALCULATED 138 mg/dL; POTASSIUM 4.1 mmol/L (3.5-5.0); SODIUM 137 mmol/L (135-145); TOTAL PROTEIN 7.9 g/dL (6.7-8.2); TRIGLYCERIDES 167 mg/dL; VLDL CHOLESTEROL 33 mg/dL
[2020-09-14 12:11] LABS: HEPATITIS C ANTIBODY NON-REACTIVE (NON-REACTIVE)
== END 2020-09-13 11:00 | disposition home or self-care (01) ==
LOC: LAB 10:59
PROVIDERS: ATTEND Physician Assistant
DX: Z00.00 Encounter for general adult medical examination without abnormal findings (principal); Z79.899 Other long term (current) drug therapy; Z13.6 Encounter for screening for cardiovascular disorders; Z11.59 Encounter for screening for other viral diseases
CPT/HCPCS: 36415; 80053; 80061; 83721; 86803

== ENCOUNTER 2020-11-01 09:52 | Outpatient (CLI) | payer MEDICARE, OTHER ==
[2020-11-01 10:55] LABS: ALBUMIN 4.3 g/dL (3.2-5.5); ALBUMIN/GLOBULIN RATIO 1.3 (1.0-2.2); ALKALINE PHOSPHATASE 115 IU/L (42-121); ALT ALANINE AMINOTRANSFERASE 82 IU/L (10-60); AST ASPARTATE AMINOTRANSFERASE 46 IU/L (10-42); BILIRUBIN,TOTAL 1.2 mg/dL (0.2-1.0); BUN - BLOOD UREA NITROGEN 18 mg/dL (6-20); CALCIUM 9.1 mg/dL (8.5-10.3); CARBON DIOXIDE - CO2 23 mmol/L (21-32); CHLORIDE 100 mmol/L (101-111); CHOL/HDL RATIO 3.5 (<4.4); CHOLESTEROL 230 mg/dL; CREATININE 0.7 mg/dL (0.4-1.0); GFR - MDRD 83 (>89); GLUCOSE 126 mg/dL (70-100); HDL CHOLESTEROL 65 mg/dL; LDL CHOLESTEROL,CALCULATED 143 mg/dL; LDL/HDL RATIO 2.2 (<4.4); POTASSIUM 4.1 mmol/L (3.5-5.0); SODIUM 134 mmol/L (135-145); TOTAL PROTEIN 7.7 g/dL (6.7-8.2); TRIGLYCERIDES 112 mg/dL; VLDL CHOLESTEROL 22 mg/dL
== END 2020-11-01 09:53 | disposition home or self-care (01) ==
LOC: LAB 09:52
PROVIDERS: ATTEND Physician Assistant
DX: E78.5 Hyperlipidemia, unspecified (principal); R74.8 Abnormal levels of other serum enzymes
CPT/HCPCS: 36415; 80053; 80061; 83721

== ENCOUNTER 2020-12-09 07:27 | Outpatient (CLI) | payer MEDICARE, OTHER ==
--- NOTE | 2020-12-09 09:01 | Ultrasound Report ---
PROCEDURE: Abdomen Limited INDICATIONS: ELEVATED AST AND ALT TECHNIQUE: Real-time focused scanning was performed of the abdomen, with image documentation. COMPARISON: None available. FINDINGS: AORTA: The visualized abdominal aorta is normal. IVC: The visualized IVC is normal. LIVER: Increased echogenicity of the liver, compatible hepatic steatosis. The liver measures 16.2 c m in length. The portal vein is patent. PANCREAS: The visualized portions of the pancreas are normal. Gallbladder and biliary tree: Surgically absent. The common bile that measures up to 11.5 mm. No ascites. IMPRESSION: 1.Hepatic steatosis. Reviewed by: Jeronimo Martinez MD on 12/09/2020 9:00 AM PDT Approved by: Jeronimo Martinez MD on 12/09/2020 9:00 AM PDT Station ID: [id number]
== END 2020-12-09 07:28 | disposition home or self-care (01) ==
LOC: DI 07:27
PROVIDERS: ATTEND Physician Assistant
DX: R74.8 Abnormal levels of other serum enzymes (principal); K76.0 Fatty (change of) liver, not elsewhere classified

== ENCOUNTER 2021-03-17 14:57 | Outpatient (CLI) | payer MEDICARE, OTHER ==
[2021-03-17] MEDS ORDERED: IOPAMIDOL-300 50 ML VIAL ONE (15:58)
[2021-03-17] MEDS ORDERED: iohexoL-300 100 ML VIAL ONE (15:58)
== END 2021-03-17 14:58 | disposition home or self-care (01) ==
LOC: DI 14:57
PROVIDERS: ATTEND Physician Assistant
DX: Z53.9 Procedure and treatment not carried out, unspecified reason (principal)

== ENCOUNTER 2022-01-15 10:08 | Outpatient (CLI) | payer MEDICARE, OTHER ==
--- NOTE | 2022-01-15 12:33 | XRAY Report ---
PROCEDURE: Hip w/Pelvis 2-3V RT INDICATIONS: LEFT HIP PAIN TECHNIQUE: AP pelvis with lateral view(s) of the left hip(s). COMPARISON: None. FINDINGS: Bones: No fractures or dislocations. Pelvic ring appears intact. No suspicious bony lesions. Mode rate degenerative changes of both hips are present. Soft tissues: The visualized bowel gas pattern is normal. No suspicious soft tissue calcifications. IMPRESSION: 1. No acute osseous abnormality. 2. Moderate degenerative changes of both hips. 3. If symptoms persist, follow-up radiographs and/or CT or MRI may be helpful for further evaluation. Reviewed by: Timothy Chakraborty MD on 01/15/2022 11:32 AM KATHRYN Approved by: Timothy Chakraborty MD on 01/15/2022 11:32 AM [facility] Station ID: [id number]
== END 2022-01-15 10:09 | disposition home or self-care (01) ==
LOC: DI 10:08
PROVIDERS: ATTEND Student in an Organized Health Care Education/Training Program
DX: M16.0 Bilateral primary osteoarthritis of hip (principal)

== ENCOUNTER 2022-02-23 10:33 | Outpatient (CLI) | payer MEDICARE, OTHER ==
--- NOTE | 2022-02-23 17:16 | DEXA Report ---
PROCEDURE: Dexa Spine and/or Hip INDICATIONS: POSTMENOPAUSAL TECHNIQUE: Dual energy x-ray absorptiometry (DXA) was performed on a [employer] System. Regions measur ed are the AP Spine, femoral neck, and if needed forearm. COMPARISON: 11/02/2019. FINDINGS: Lumbar Spine: Bone Mineral Density 1.157 g/cm/cm,T score -0.2. There is interval 1.4% increase in total lumbar s pine bone mineral density. Left Femoral Neck: Bone Mineral Density 0.826 g/cm/cm, T score -1.5. Left Hip: Bone Mineral Density 0.951 g/cm/cm,T score -0.4. There is interval 4.5% decrease in total left hip b one mineral density. (T score greater or equal to -1.0: NORMAL) (T score from -1.1 to -2.4: OSTEOPENIA) (T score less than or equal to -2.5 to: OSTEOPOROSIS) Impression: Osteopenia. Patients with diagnosis of osteoporosis or osteopenia should have regular bone mineral density assess ment. For those eligible for Medicare, routine testing is allowed once every 2 years. Testing frequ ency can be increased for patients who have rapidly progressing disease or for those who are receivin g medical therapy to restore bone mass. Reviewed by: Paulo Bolton MD on 02/23/2022 5:15 PM PST Approved by: Paulo Bolton MD on 02/23/2022 5:15 PM PST Station ID: [id number]
== END 2022-02-23 10:34 | disposition home or self-care (01) ==
LOC: DI 10:33
PROVIDERS: ATTEND Student in an Organized Health Care Education/Training Program
DX: M85.88 Other specified disorders of bone density and structure, other site (principal)

== ENCOUNTER 2022-10-17 14:07 | Outpatient (CLI) | payer MEDICARE, OTHER ==
--- NOTE | 2022-10-17 16:00 | XRAY Report ---
PROCEDURE: Thoracic Spine 2 View INDICATIONS: THORASIC SPINE PAIN TECHNIQUE: 2 views of the thoracic spine were acquired. COMPARISON: None. FINDINGS: Bones: No fractures or dislocations. No suspicious bony lesions. 12 pairs of ribs are noted, and a ppear intact where visualized. Multilevel degenerative changes of the thoracic spine with disc height loss, degenerative endplate changes and marginal spurring. Decreased osseous mineralization. Soft tissues: No paravertebral stripe thickening. Partially visualized shoulder arthroplasty. IMPRESSION: Degenerative changes of the thoracic spine. Reviewed by: Cipriano Zhao MD on 10/17/2022 3:59 PM PDT Approved by: Cipriano Zhao MD on 10/17/2022 3:59 PM PDT Station ID: [id number]
== END 2022-10-17 14:08 | disposition home or self-care (01) ==
LOC: DI 14:07
PROVIDERS: ATTEND Nurse Practitioner Family
DX: M51.34 Other intervertebral disc degeneration, thoracic region (principal)

== ENCOUNTER 2023-01-03 08:59 | Outpatient (CLI) | payer MEDICARE, OTHER ==
--- NOTE | 2023-01-03 17:42 | CT Report ---
PROCEDURE: Low Dose Lung Cancer Screen INDICATIONS: FORMER SMOKER TECHNIQUE: A CT scan of the chest was performed. Intravenous contrast media was not administered. Images were re corded and evaluated at appropriate window settings. Reformats: axial MIP of the chest, coronal and s agittal. For radiation dose reduction, the following was used: automated exposure control, adjustment of mA and/or kV according to patient size. COMPARISON: 09/22/2019 and 06/26/2018 FINDINGS: Image quality: Excellent. Prior cancer history: Unsure. Lungs and pleura: No pleural effusions. No pneumothorax. No suspicious pulmonary nodules which requi re follow up. Redemonstration of subpleural 4 mm nodule in the right upper lobe. No new suspicious or enlarging pulmonary nodules. Stable appearance of mild upper lobe predominant pulmonary emphysema. N o septal thickening or nodularity. No acute airspace disease. Mediastinum: Heart size is normal. No pericardial effusion. No large vessel abnormality. No mediastin al adenopathy by size criteria. Atherosclerotic calcifications identified. Chest wall and lower neck: Thyroid is unremarkable. No axillary or supraclavicular adenopathy by size . Bones: No aggressive osseous abnormality. No acute compression fractures. Upper Abdomen: There is pneumobilia identified not previously seen. Status post cholecystectomy.. IMPRESSION: Lung RAD: 2 - Benign. Recommendation: Continue annual screening in 12 Months with LDCT Non-Lung Significant Findings: . Status post remote cholecystectomy with mild pneumobilia, new compar ed to prior studies. Recommend clinical correlation for history of recent instrumentation. Reviewed by: Justin Montgomery MD on 01/03/2023 5:41 PM PST Approved by: Justin Montgomery MD on 01/03/2023 5:41 PM PST Station ID: [id number]
== END 2023-01-03 09:00 | disposition home or self-care (01) ==
LOC: DI 08:59
PROVIDERS: ATTEND Nurse Practitioner Family
DX: Z12.2 Encounter for screening for malignant neoplasm of respiratory organs (principal); Z87.891 Personal history of nicotine dependence

== ENCOUNTER 2023-01-30 10:06 | Outpatient (CLI) | payer MEDICARE, OTHER ==
--- NOTE | 2023-01-31 10:20 | Mammography Report ---
BILATERAL DIGITAL SCREENING MAMMOGRAM 3D/2D: 01/30/2023 CLINICAL: Routine screening. Comparison is made to exams dated: 10/27/2019 mammogram, 08/11/2018 mammogram, 06/29/2017 mammogram, 06/18 mammogram, 05/30/2015 mammogram, and 05/26/2014 mammogram - [facility]. There are scattered areas of fibroglandular density in both breasts (category b / 25%-50% glandular t issue). There is a possible irregular low density focal asymmetry in the right breast central to the nipple p osterior depth. This is more prominent. There is possible architectural distortion associated with the focal asymmetry. No other significant masses, calcifications, or other findings are seen in either breast. IMPRESSION: INCOMPLETE: NEEDS ADDITIONAL IMAGING EVALUATION The possible irregular low density focal asymmetry in the right breast is indeterminate. Additional views with possible ultrasound are recommended. Based on the Tyrer Cuzick model (a risk assessment model) the patients lifetime risk is 8.0% and her 10 year risk is 5.1%. According to the ACR, ACS, and NCCN guidelines, an annual breast MRI exam shivam g with mammogram is recommended if the patients lifetime risk is 20% or greater. This exam was interpreted at Station ID: [id number]. NOTE: For mammograms, a report in lay terms will be sent to the patient. Approximately 15% of breast malignancies will not be visualized mammographically. In the management of a palpable breast mass, a negative mammogram must not discourage biopsy of a clinically suspicious lesion. Electronically Signed By: Justin Montgomery M.D. aty/:01/30/2023 23:27:11 ACR BI-RADS Category 0: Incomplete 3340F PARENCHYMAL PATTERN: (A) - The breast(s) demonstrate(s) scattered fibroglandular densities. BI-RADS CATEGORY: (0) - 0 Mammo and [place] [id number] Immediate follow-up LATERALITY: (R)
== END 2023-01-30 10:07 | disposition home or self-care (01) ==
LOC: DI 10:06
PROVIDERS: ATTEND Nurse Practitioner Family
DX: Z12.31 Encounter for screening mammogram for malignant neoplasm of breast (principal); R92.323 Mammographic fibroglandular density, bilateral breasts

== ENCOUNTER 2023-02-21 09:22 | Outpatient (CLI) | payer MEDICARE, OTHER ==
--- NOTE | 2023-02-22 12:52 | Ultrasound Report ---
LIMITED ULTRASOUND OF RIGHT BREAST AND AXILLA: 02/21/2023 CLINICAL: Patient returns today to evaluate a focal asymmetry in the right breast. Comparison is made to exams dated: 02/21/2023 mammogram, 01/30/2023 mammogram, 10/27/2019 mammogram, 07/20 mammogram, 06/29/2017 mammogram, and 07/02/2016 mammogram - [facility]. Color flow and real-time ultrasound of the right breast 7 o'clock, and axilla regions were performed. Matute scale images of the real-time examination were reviewed. There is a 1.1 cm x 1.6 cm x 1.3 cm irregular mass with a spiculated margin in the right breast at 7 o'clock, 5 cm from the nipple. This mass corresponds to finding seen on mammogram. No abnormal lymph nodes are seen in the right axilla. IMPRESSION: SUSPICIOUS OF MALIGNANCY Right breast 1.6 cm spiculated mass at 7 o'clock, 5 cm from the nipple. Finding is suspicious. Recomm end ultrasound guided core biopsy. Findings and recommendations were discussed with the patient by Dr. Cardona at the time of imaging comp letion. This exam was interpreted at Station ID: [id number]. Electronically Signed By: Toshia Moreno M.D., PH.D eb/:02/21/2023 13:01:36 Ultrasound BI-RADS: 4 Suspicious for malignancy BI-RADS CATEGORY: (4) - 4 Biopsy [id number] Immediate follow-up LATERALITY: (R)
--- NOTE | 2023-02-22 12:52 | Mammography Report ---
UNILATERAL RIGHT DIGITAL DIAGNOSTIC MAMMOGRAM 3D/2D WITH SPOT COMPRESSION: 02/21/2023 CLINICAL: Patient returns today to evaluate a focal asymmetry in the right breast. Comparison is made to exams dated: 10/27/2019 mammogram, 01/30/2023 mammogram, 08/11/2018 mammogram, 01/2018 mammogram, 07/02/2016 mammogram, and 05/30/2015 mammogram - [facility]. There are scattered areas of fibroglandular density in the right breast (category b / 25%-50% glandul ar tissue). There is a 1.6 cm spiculated mass in the right breast at 7 o'clock middle depth. This corresponds to finding seen on recent screening mammogram. No other significant masses or calcifications are seen in the breast. IMPRESSION: INCOMPLETE: NEEDS ADDITIONAL IMAGING EVALUATION Right breast 1.6 cm spiculated mass at 7 o'clock. An ultrasound is recommended for further evaluation and is scheduled to immediately follow this examination. Based on the Tyrer Cuzick model (a risk assessment model) the patients lifetime risk is 7.6% and her 10 year risk is 5.2%. According to the ACR, ACS, and NCCN guidelines, an annual breast MRI exam shivam g with mammogram is recommended if the patients lifetime risk is 20% or greater. This exam was interpreted at Station ID: [id number]. NOTE: For mammograms, a report in lay terms will be sent to the patient. Approximately 15% of breast malignancies will not be visualized mammographically. In the management of a palpable breast mass, a negative mammogram must not discourage biopsy of a clinically suspicious lesion. Electronically Signed By: Toshia Moreno M.D., PH.D eb/:02/21/2023 12:58:20 ACR BI-RADS Category 0: Incomplete 3340F PARENCHYMAL PATTERN: (A) - The breast(s) demonstrate(s) scattered fibroglandular densities. BI-RADS CATEGORY: (0) - 0 Ultrasound [id number] Immediate follow-up LATERALITY: (B)
== END 2023-02-21 09:23 | disposition home or self-care (01) ==
LOC: DI 09:22
PROVIDERS: ATTEND Nurse Practitioner Family
DX: N63.13 Unspecified lump in the right breast, lower outer quadrant (principal); R92.321 Mammographic fibroglandular density, right breast

== ENCOUNTER 2023-02-28 09:46 | Outpatient (CLI) | payer MEDICARE, OTHER ==
[~2023-02-28 09:46] MED LIST changes: -ALBUTEROL 1 PUFF INH SCH; +LIDOCAINE 1%-EPI 1:100000 50 ML VIAL ONE; +LIDOCAINE-MPF 1% 5 ML VIAL ONE
[2023-02-28] MEDS ORDERED: LIDOCAINE-MPF 1% 5 ML VIAL ONE (10:52)
[2023-02-28] MEDS ORDERED: LIDOCAINE-MPF 1% 5 ML VIAL TD ONE (16:16)
[2023-02-28] MEDS ORDERED: LIDOCAINE 1%-EPI 1:100000 50 ML VIAL TD ONE (17:00)
[2023-02-28] MEDS ORDERED: LIDOCAINE 1%-EPI 1:100000 50 ML VIAL TD SCH (17:00)
--- NOTE | 2023-03-01 12:48 | Mammography Report ---
UNILATERAL RIGHT DIGITAL DIAGNOSTIC MAMMOGRAM POST-PROCEDURE IMAGING FOR MARKER PLACEMENT: 02/28/2023 CLINICAL: Post right breast ultrasound biopsy clip placement imaging. Comparison is made to exams dated: 02/21/2023 mammogram, 01/30/2023 mammogram, and 10/27/2019 mammogram - [facility]. There are scattered areas of fibroglandular density in the right breast (category b / 25%-50% glandul ar tissue). There is a marker clip in the appropriate position in the right breast middle depth medial region see n on the craniocaudal view only. This marker clip placement is at the biopsy site. IMPRESSION: POST PROCEDURE MAMMOGRAM FOR MARKER PLACEMENT There was a successful marker clip placement in the right breast middle depth medial region seen on t he craniocaudal view only. Based on the Tyrer Cuzick model (a risk assessment model) the patients lifetime risk is 7.6% and her 10 year risk is 5.2%. According to the ACR, ACS, and NCCN guidelines, an annual breast MRI exam shivam g with mammogram is recommended if the patients lifetime risk is 20% or greater. This exam was interpreted at Station ID: [id number]. NOTE: For mammograms, a report in lay terms will be sent to the patient. Approximately 15% of breast malignancies will not be visualized mammographically. In the management of a palpable breast mass, a negative mammogram must not discourage biopsy of a clinically suspicious lesion. Electronically Signed By: Danitza Cardona M.D. [facility]/:03/01/2023 12:39:01 Entry: - 03/01/2023 12:39:01 ACR BI-RADS Category Post-procedure mammogram for marker placement PARENCHYMAL PATTERN: (A) - The breast(s) demonstrate(s) scattered fibroglandular densities. BI-RADS CATEGORY: () - Unspecified - other recall n/a LATERALITY: (B)
--- NOTE | 2023-03-05 16:45 | Ultrasound Report ---
ULTRASOUND GUIDED BIOPSY RIGHT BREAST USING VACUUM DEVICE WITH MARKING DEVICE INSERTED AND POST MAMMO GRAPHIC IMAGIN02/28/2023 CLINICAL: Right breast mass. PATIENT CONSENT: Risks (minor bleeding, infection, vasovagal reaction and repeat procedure), benefits and alternatives were explained to the patient and written informed consent was obtained. Correlation is made to exams dated: 02/21/2023 ultrasound, 02/21/2023 mammogram, 01/30/2023 mammogram, mammogram, 08/11/2018 mammogram, and 06/29/2017 mammogram - [facility]. An ultrasound guided biopsy using real-time ultrasound was performed for the indistinct irregular sha ped mass located in the right breast at 7 o'clock middle depth. This was described on the previous m ammography and ultrasound reports. The skin was prepped in the usual manner. Local anesthetic was a dministered to the access site. A skin kade was made in the breast. The abnormality was approached from the medial aspect. A biopsy needle was placed adjacent to the abnormality under ultrasound guid ance. Once the needle was documented to be in the correct location, a specimen was obtained using th e [employer] system. A titanium clip was inserted into the biopsy cavity. A sterile dressing was applied to the access site. Post procedure mammographic imaging was obtained. The specimen was sent to the laboratory for pathological analysis. IMPRESSION: ULTRASOUND GUIDED BIOPSY MALIGNANT Ultrasound guided biopsy of the mass in the right breast at 7 o'clock middle depth was successful. 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 Path ology results are concordant with imaging findings. A surgical/oncologic consultation is recommended . Results and recommendations will be communicated to the ordering provider's office. This exam was interpreted at Station ID: [id number]. Danitza Chow M.D. [facility]/:03/04/2023 11:40:31 BI-RADS CATEGORY: () - Unspecified - other recall n/a LATERALITY: (B)
== END 2023-02-28 09:47 | disposition home or self-care (01) ==
LOC: DI 09:46
PROVIDERS: ATTEND Nurse Practitioner Family
DX: C50.511 Malignant neoplasm of lower-outer quadrant of right female breast (principal); Z17.0 Estrogen receptor positive status [ER+]
CPT/HCPCS: 19083; 77065; J3490

== ENCOUNTER 2023-09-10 09:14 | Outpatient (CLI) | payer MEDICARE, OTHER ==
--- NOTE | 2023-09-10 18:55 | XRAY Report ---
PROCEDURE: Wrist 3+V RT INDICATIONS: WRIST PAIN TECHNIQUE: 3 views of the wrist were acquired. COMPARISON: None. FINDINGS: Bones: There is subacute to chronic appearing impacted distal radial fracture [facility]. Old injury involving ulnar styloid tip is also seen with well-corticated bony fragment. No acute fracture or dislocation. Osteoarthritic changes are noted throughout wrist joints most notably at first [facility] joint. No suspicious bony lesions. Soft tissues: No suspicious soft tissue calcifications or masses. IMPRESSION: No acute fracture or dislocation. Healed or nearly healed distal radial impacted fracture and old uln ar styloid tip fracture. Right wrist joint osteoarthritis as above. Reviewed by: Paulo Bolton MD on 09/10/2023 6:54 PM PDT Approved by: Paulo Bolton MD on 09/10/2023 6:54 PM PDT Station ID: [id number]
== END 2023-09-10 09:15 | disposition home or self-care (01) ==
LOC: DI 09:14
PROVIDERS: ATTEND Student in an Organized Health Care Education/Training Program
DX: M19.031 Primary osteoarthritis, right wrist (principal); S52.501D Unspecified fracture of the lower end of right radius, subsequent encounter for closed fracture with routine healing; S52.611D Displaced fracture of right ulna styloid process, subsequent encounter for closed fracture with routine healing

== ENCOUNTER 2023-09-20 08:51 | Outpatient (CLI) | payer MEDICARE, OTHER ==
--- NOTE | 2023-09-21 19:15 | Ultrasound Report ---
PROCEDURE: Extremity Soft Tissue Limited INDICATIONS: WRIST PAIN TECHNIQUE: Real-time scanning was performed of the right wrist, with image documentation. COMPARISON: Right wrist radiograph dated 09/10/2023. FINDINGS: Focused ultrasound examination over volar aspect of right wrist near base of thumb shows a nechoic area within soft tissue measures 5 x 4 x 5 mm in size and show no internal vascularity. IMPRESSION: Finding likely represent a tiny ganglion cyst over volar aspect of right wrist measures 5 mm in size. Reviewed by: Paulo Poon MD on 09/21/2023 7:13 PM PDT Approved by: Paulo Poon MD on 09/21/2023 7:13 PM PDT Station ID: [id number]
== END 2023-09-20 08:52 | disposition home or self-care (01) ==
LOC: DI 08:51
PROVIDERS: ATTEND Student in an Organized Health Care Education/Training Program
DX: M25.531 Pain in right wrist (principal); R93.6 Abnormal findings on diagnostic imaging of limbs